=== PATIENT | male | born 1975 | race Caucasian/White ===

== ENCOUNTER 2016-12-09 04:27 | Emergency (ER) | payer OTHER ==
[~2016-12-09] VITALS: Ht 172.7 cm; Wt 81.6 kg
--- NOTE | 2016-12-09 04:35 | NUR ---
BB RA; HEAD PAIN. PATIENT LEGALLY BLIND, A/OX 4. BREATHING EVEN AND UNLABORED. NO SOB. VITALS STABLE. SAFETY AND COMFORT MEASURES IN PLACE. AWAITING MD ORDERS.
[2016-12-09] MEDS ORDERED: DIAZEPAM 5 MG TABLET ONE (04:44)
--- NOTE | 2016-12-09 04:44 | NUR ---
MEDICATED PATIENT WITH VALIUM [address] REYNAGA.
--- NOTE | 2016-12-09 05:23 | NUR ---
Patient discharged to home in stable condition. Written and verbal after care instructions given. Patient verbalizes understanding of instruction.
[2016-12-09 05:25] VITALS: BP 156/94
== END 2016-12-09 05:26 | disposition home or self-care (01) ==
LOC: ER 04:28
DX: R51 Headache (principal); I10 Essential (primary) hypertension; H54.7 Unspecified visual loss; H40.9 Unspecified glaucoma; Z98.890 Other specified postprocedural states
CPT/HCPCS: A4606; Z7610

== ENCOUNTER 2017-06-16 01:12 | Emergency (ER) | payer OTHER ==
[~2017-06-16] VITALS: Ht 170.2 cm; Wt 74.4 kg
[2017-06-16 01:18] VITALS: BP 153/88
[2017-06-16] MEDS ORDERED: MECLIZINE HCL 12.5 MG TABLET PO ONE (01:30)
[2017-06-16] MEDS ORDERED: MECLIZINE HCL 25 MG TABLET ONE (01:38)
== END 2017-06-16 02:17 | disposition home or self-care (01) ==
LOC: ER 01:12
DX: R42 Dizziness and giddiness (principal); I10 Essential (primary) hypertension; E11.9 Type 2 diabetes mellitus without complications; H40.9 Unspecified glaucoma; Z88.5 Allergy status to narcotic agent; Z88.8 Allergy status to other drugs, medicaments and biological substances; Z60.2 Problems related to living alone
CPT/HCPCS: A4606; J8597; Z7610

== ENCOUNTER 2020-11-14 15:33 | Emergency (ER) | payer OTHER ==
[~2020-11-14] VITALS: Ht 170.2 cm; Wt 73.5 kg
[2020-11-14] MEDS ORDERED: oxyCODONE HCL SR 10MG TAB.SR.12H PO STA (16:36)
[2020-11-14] MEDS ORDERED: oxyCODONE IR immediate release 5 MG ONE (17:19)
--- NOTE | 2020-11-14 17:58 | NUR ---
SEEN AND EVALUATED BY DR CORTEZ. MEDICALLY CLEARED TO BE DISCHARGE.
--- NOTE | 2020-11-14 18:01 | NUR ---
Patient discharged to home in stable condition. Written and verbal after care instructions given. Patient verbalizes understanding of instruction.
[2020-11-14 18:28] VITALS: BP 122/81
== END 2020-11-14 18:01 | disposition home or self-care (01) ==
LOC: ER 15:39
DX: R10.9 Unspecified abdominal pain (principal); G89.29 Other chronic pain; I10 Essential (primary) hypertension; E11.9 Type 2 diabetes mellitus without complications; Z98.890 Other specified postprocedural states; Z88.6 Allergy status to analgesic agent; Z88.8 Allergy status to other drugs, medicaments and biological substances; Z60.2 Problems related to living alone

== ENCOUNTER 2021-01-13 11:41 | Emergency (ER) | payer OTHER ==
[~2021-01-13] VITALS: Ht 170.2 cm; Wt 73.5 kg
--- NOTE | 2021-01-13 12:02 | NUR ---
TO ER BED 7, C/O ABDOMINAL PAIN SINCE LAST NIGHT, AAOX3, BREATHING EVEN AND NON LABORED, CONNECTED TO MONITOR
--- NOTE | 2021-01-13 12:15 | NUR ---
REFUSED BLOOD DRAW, AWARE
[2021-01-13] MEDS ORDERED: HYDR-4209 PO (12:45)
--- NOTE | 2021-01-13 12:50 | NUR ---
CALL [facility] AND HAS AN ETA OF [phone]
[2021-01-13] MEDS ORDERED: HYDROCODONE/APAP 10/325MG TABLET ONE (12:51)
[2021-01-13] MEDS ORDERED: HYDROCODONE/APAP 10/325MG TABLET PO ONE (13:00)
[2021-01-13 13:58] VITALS: BP 124/86
--- NOTE | 2021-01-13 13:58 | NUR ---
Patient discharged to home in stable condition. Written and verbal after care instructions given. Patient verbalizes understanding of instruction.
== END 2021-01-13 13:59 | disposition home or self-care (01) ==
LOC: ER 11:45
DX: G89.29 Other chronic pain (principal); R10.9 Unspecified abdominal pain; I10 Essential (primary) hypertension; E11.9 Type 2 diabetes mellitus without complications; Z98.890 Other specified postprocedural states; Z88.6 Allergy status to analgesic agent; Z88.8 Allergy status to other drugs, medicaments and biological substances; Z60.2 Problems related to living alone